=== PATIENT | female | born 2005 | race Hispanic/Latino ===

== ENCOUNTER 2024-06-26 01:48 | Emergency (ER) | payer SELFPAY ==
[~2024-06-26] VITALS: Ht 157.5 cm; Wt 74.8 kg
[2024-06-26 03:20] VITALS: PULSE 80; RESP 15; TEMP 98.6
[2024-06-26 03:22] VITALS: BP 111/68; PULSE 80; RESP 14; TEMP 98.6; O2SAT 98
== END 2024-06-26 03:24 | disposition home or self-care (01) ==
LOC: FSED 01:54
DX: R06.02 Shortness of breath (principal); R07.89 Other chest pain
CPT/HCPCS: 71046; 80053; 81025; 82553; 84484; 85025; 93005; 99284